=== PATIENT | female | born 1975 | race Caucasian/White ===

== ENCOUNTER 2020-09-10 16:18 | Inpatient (IN) | payer OTHER, SELFPAY ==
[2020-09-10] VITALS (7 sets, daily range): BP systolic 109–123; BP diastolic 71–80; PULSE 114–135; RESP 16–20; TEMP 36.8–39.3; O2SAT 80–99; BMI 29.0
--- NOTE | ~2020-09-10 | XR_ITS ---
EXAMINATION: XR CHEST CLINICAL INFORMATION: Shortness of breath COMPARISON: None TECHNIQUE: Frontal view of the chest was obtained. FINDINGS: There is slight ectasia of the aortic arch. The heart size is within normal limits. There is no hilar mass. Lung volumes are maintained. There are scattered patchy opacities in the mid and lower lung zones. There is no pneumothorax or pleural fluid. No evidence of pneumoperitoneum. XR/XR chest 1V IMPRESSION: Suspect multiple bilateral scattered lung opacities. This could reflect pneumonia.
--- NOTE | ~2020-09-10 | CT_ITS ---
EXAMINATION: CT ANGIOGRAM OF THE CHEST WITH AND WITHOUT CONTRAST (CT PULMONARY ANGIOGRAM FOR PE) CLINICAL INFORMATION: Reason for Exam covid with hypoxia COMPARISON: Chest radiograph earlier today TECHNIQUE: Prior to contrast administration, noncontrast localization images were obtained. Subsequently, multidetector volumetric imaging was performed from the thoracic inlet to below the diaphragms following the administration of 65 mL Omnipaque 350 intravenous contrast. No contrast reaction reported Sagittal, coronal, and MIP oblique sagittal reformatted images were obtained on the CT workstation, uploaded to PACS, and reviewed. This CT examination was performed using dose optimization techniques as appropriate, variously including the following: *Automated exposure control *Adjustment of mA and/or kV according to patient size (this includes techniques or standardized protocols for targeted exams where dose is matched to indication/reason for exam; i.e. extremities or head) *Use of iterative reconstruction technique Total exam dose-length product 261 mGy-cm FINDINGS: QUALITY OF STUDY/CONTRAST BOLUS: Satisfactory. PULMONARY ARTERIES: No central or large segmental pulmonary emboli. THORACIC AORTA: No aneurysm or dissection. LUNG: Multifocal predominantly peripheral groundglass infiltrates are present characteristic of Covid 19. PLEURA: No pleural effusion or pneumothorax. MEDIASTINUM: Normal heart size. No pericardial effusion. Small reactive lymph nodes are present but there is no hilar or mediastinal lymphadenopathy. No evidence of septal bowing or right heart strain. CHEST WALL/AXILLA: Some small axillary lymph nodes are present but there is no axillary or internal mammary lymphadenopathy. OSSEOUS STRUCTURES: No acute or suspicious osseous abnormality. UPPER ABDOMEN: Small hiatal hernia is present. No reflux of contrast into the hepatic veins to suggest elevated right heart pressures. CT/CT angio chest PE protocol IMPRESSION: 1. No convincing evidence of pulmonary emboli 2. Multifocal groundglass infiltrates present characteristic of Covid 19 VTE: negative
--- NOTE | 2020-09-10 16:43 | ECG_ITS ---
Test Reason : WEAKNESS Blood Pressure : / mmHG Vent. Rate : 129 BPM Atrial Rate : 129 BPM P-R Int : 120 ms QRS Dur : 074 ms QT Int : 312 ms P-R-T Axes : 056 070 -12 degrees QTc Int : 457 ms Sinus tachycardia Nonspecific ST abnormality Borderline ECG When compared with ECG of 28-OCT-2016 19:58, No significant change was found Referred By: Generic ED Physician Electronically Signed By:TAMIKA MENG
[2020-09-10 18:09] LABS: MANUAL DIFF FLAG NO
[2020-09-10 18:11] LABS: Hematocrit 38.6 % (37-47); Hemoglobin 12.7 g/dl (12.0-16.0); Imm Gran Abs Auto 0.02 X10*3/uL (0.00-0.03); Imm Gran Pct Auto 0.4 % (0.0-0.4); Lymphocytes Percent Auto 20.3 % (20-40); Mean Corpuscular HGB Conc 32.9 g/dl (31.0-35.0); Mean Corpuscular Hemoglobin 28.7 pg (27.0-33.0); Mean Corpuscular Volume 87.3 fL (80-98); Mean Platelet Volume 10.8 fL (9.4-12.3); Monocytes Absolute Auto 0.3 X10*3/uL (0.1-1.2); Monocytes Percent Auto 5.5 % (2-11); Neutrophils Absolute Auto 3.5 X10*3/uL (2.0-8.3); Neutrophils Percent Auto 73.8 % (45-73); Platelet Count 189 X10*3/uL (160-400); Red Blood Count 4.42 X10*6/uL (4.20-5.50); Red Cell Distribution Width 11.9 % (11.0-16.0); White Blood Count 4.7 X10*3/uL (4.8-10.8)
[2020-09-10 18:40] LABS: Anion Gap 14 (12-20); Blood Urea Nitrogen 5 mg/dL (9-16); Calcium 7.9 mg/dL (8.4-10.2); Carbon Dioxide 32 mmol/L (22-29); Chloride 92 mmol/L (96-108); Creatinine Clr Calc Pharmacy 94.3; Estimated Glomerular Filt Rate > 60; Glucose Random 134 mg/dL (60-115); Potassium 2.9 mmol/L (3.3-5.1); Sodium 135 mmol/L (135-145)
--- NOTE | 2020-09-10 19:19 | ED.URI ---
HPI - URI/Sore Throat General Chief Complaint: Upper Respiratory Symptoms Stated Complaint: cough Time Seen by Provider: 09/10/20 19:19 Source: patient Mode of arrival: ambulatory Limitations: no limitations History of Present Illness HPI Narrative: Past medical history been congested coughing body aches headache for last 4 days had subjective low-grade fever and chills and shortness of breath had COVID vaccine yesterday and now she is feeling more sick patient was saturating 92% at room air with tachycardia of 135 with frequent coughing. No other family member is sick patient never had COVID infection Related Data Home Medications Medication Instructions Recorded Confirmed No Known Home Meds 09/11/20 09/11/20 Allergies Allergy/AdvReac Type Severity Reaction Status Date / Time No Known Allergies Allergy Unverified 01/04/20 17:47 Review of Systems Review of Systems: Constitutional : No Weight loss, +Fever, No Chills ENT/Mouth : No sore throat, No Rhinorrhea Eyes: No Eye Pain, No Swelling Cardiovascular : No Chest Pain, no palpitations Respiratory : + Cough, No Sputum, no shortness of breath Gastrointestinal : no Nausea, No Vomiting, No Diarrhea, No abdominal Pain, no black stools Genitourinary : No Dysuria, No Urinary Frequency Musculoskeletal : No joint pain, No Myalgias, No Joint Swelling Skin : No Skin Lesions, No rash Neuro : + Weakness, No Numbness, No Dizziness,+ Headache Psych : No Anxiety/Panic, No Depression Heme/Lymph: No Bruising, No Lymphadenopathy Endocrine : No Polyuria, No Polydipsia All other systems reviewed and are negative [facility] Social History Social History Household Members: Family Housing: Apartment Alcohol intake: never Smoked in Last 30 Days: No Use of substances other than those prescribed or required for medical reasons: No Currently Displaying Signs/Symptoms of Drug Intoxication Withdrawal: No Have you been hit, kicked, punched, or otherwise hurt by someone within the past year? If so, by whom?: No Do you feel safe in your current relationship?: No Current Relationship Is there a partner from a previous relationship who is making you feel unsafe now?: No Are you made to feel afraid or neglected: No Advance Directives: No Advance Directives Information Provided: Yes Do you have thoughts of harming others: None Do you have a plan to hurt others: No Plan Recently lost weight without trying: No How much weight loss: Not applicable Eating poorly because of decreased appetite: No Nutrition screen score: 0 Patient : No service: No Current occupational status: unemployed Physical Exam Vital Signs: Vital Signs: Last Vital Signs Temp 98.0 F 09/11/20 15:27 Pulse 94 09/11/20 15:27 Resp 18 09/11/20 15:27 BP 100/70 09/11/20 15:27 Pulse Ox 95 09/11/20 15:27 Body Mass Index 29.0 Appearance: Alert. Oriented X3. No acute distress. Frequent cough Eyes: PERRLA, No Nystagmus ENT: Pharynx normal. Oral Mucosa moist Neck: Normal inspection. Neck supple. CVS: Normal heart rate and rhythm. Pulses normal. Respiratory: Moderate respiratory distress with frequent cough prolonged expiration. Equal air entry bilateral, no rales occasional rhonchi and wheezing Abdomen: Soft and nontender. Bowel sounds are present, no mass palpable, no CVA tenderness Skin: Skin warm and dry. Normal skin color. Normal skin turgor. Extremities: No lower extremity edema. No calf tenderness Neuro: Oriented X 3. No motor deficit. No sensory deficit.No cerebellar signs , cranial nerves II-XII intact MDM - URI/Sore Throat MDM Narrative Medical decision making narrative: Patient positive for COVID-19 infection desaturated to 88% at room air in the ER improved on 2 L to 95% frequent cough chest x-ray showed bilateral infiltrate CTA chest showed no PE multiple ground-glass infiltrate. Patient started on Decadron p.o. doxycycline will admit patient for hypoxia with COVID infection Differential Diagnosis Differential diagnosis: Likely upper respiratory infection Medical Records Attestation: I reviewed the patient's medical records. Lab Data Attestation: I reviewed the patient's lab results. Result diagrams: 09/11/20 05:56 09/11/20 05:56 Labs: Lab Results 09/10/20 09/10/20 09/10/20 Range/Units 18:05 18:05 19:38 WBC 4.7 L (4.8-10.8) X10*3/uL RBC 4.42 (4.20-5.50) X10*6/uL Hgb 12.7 (12.0-16.0) g/dl Hct 38.6 (37-47) % MCV 87.3 (80-98) fL MCH 28.7 (27.0-33.0) pg MCHC 32.9 (31.0-35.0) g/dl RDW 11.9 (11.0-16.0) % Plt Count 189 (160-400) X10*3/uL MPV 10.8 (9.4-12.3) fL Immature Gran % (Auto) 0.4 (0.0-0.4) % Neut % (Auto) 73.8 H (45-73) % Lymph % (Auto) 20.3 (20-40) % [place] % (Auto) 5.5 (2-11) % Eos % (Auto) 0.0 (0-4) % Baso % (Auto) 0.0 (0-2) % Lymph # (Auto) 1.0 L (1.2-4.9) X10*3/uL [place] # (Auto) 0.3 (0.1-1.2) X10*3/uL Eos # (Auto) 0.0 (0.0-0.4) X10*3/uL Baso # (Auto) 0.0 (0.0-0.2) X10*3/uL Abs Immat Gran (auto) 0.02 (0.00-0.03) X10*3/uL Absolute Neuts (auto) 3.5 (2.0-8.3) X10*3/uL Absolute Nucleated RBC 0.000 (0.0-0.012) X10*3/uL Nucleated RBC % (auto) 0.0 (0.0-0.2) /100WBC PT (10.8-13.0) SEC INR (0.9-1.1) APTT (24.1-38.0) SEC D-Dimer NG/ML Sodium 135 (135-145) mmol/L Potassium 2.9 L (3.3-5.1) mmol/L Chloride 92 L (96-108) mmol/L Carbon Dioxide 32 H (22-29) mmol/L Anion Gap 14 (12-20) BUN 5 L (9-16) mg/dL Creatinine 0.72 (0.5-1.4) mg/dL Estim Creat Clear Calc 94.3 Estimated GFR > 60 Random Glucose 134 H (60-115) mg/dL Calcium 7.9 L (8.4-10.2) mg/dL Magnesium 2.0 (1.6-2.6) mg/dL Lactate Dehydrogenase 296 H (122-220) U/L C-Reactive Protein 8.31 H (< or = 0.50) mg/dL COVID-19 (MARIAM) Positive A (Negative) COVID-19 Clin Com See Note 09/10/20 Range/Units 22:24 WBC (4.8-10.8) X10*3/uL RBC (4.20-5.50) X10*6/uL Hgb (12.0-16.0) g/dl Hct (37-47) % MCV (80-98) fL MCH (27.0-33.0) pg MCHC (31.0-35.0) g/dl RDW (11.0-16.0) % Plt Count (160-400) X10*3/uL MPV (9.4-12.3) fL Immature Gran % (Auto) (0.0-0.4) % Neut % (Auto) (45-73) % Lymph % (Auto) (20-40) % [place] % (Auto) (2-11) % Eos % (Auto) (0-4) % Baso % (Auto) (0-2) % Lymph # (Auto) (1.2-4.9) X10*3/uL [place] # (Auto) (0.1-1.2) X10*3/uL Eos # (Auto) (0.0-0.4) X10*3/uL Baso # (Auto) (0.0-0.2) X10*3/uL Abs Immat Gran (auto) (0.00-0.03) X10*3/uL Absolute Neuts (auto) (2.0-8.3) X10*3/uL Absolute Nucleated RBC (0.0-0.012) X10*3/uL Nucleated RBC % (auto) (0.0-0.2) /100WBC PT 14.0 H (10.8-13.0) SEC INR 1.2 H (0.9-1.1) APTT 30.7 (24.1-38.0) SEC D-Dimer 364 NG/ML Sodium (135-145) mmol/L Potassium (3.3-5.1) mmol/L Chloride (96-108) mmol/L Carbon Dioxide (22-29) mmol/L Anion Gap (12-20) BUN (9-16) mg/dL Creatinine (0.5-1.4) mg/dL Estim Creat Clear Calc Estimated GFR Random Glucose (60-115) mg/dL Calcium (8.4-10.2) mg/dL Magnesium (1.6-2.6) mg/dL Lactate Dehydrogenase (122-220) U/L C-Reactive Protein (< or = 0.50) mg/dL COVID-19 (MARIAM) (Negative) COVID-19 Clin Com Imaging Data CT scan - chest: Attestation: I personally reviewed and interpreted this imaging study as follows: Radiologist's impression: CT/CT angio chest PE protocol IMPRESSION: 1. No convincing evidence of pulmonary emboli 2. Multifocal groundglass infiltrates present characteristic of Covid 19 VTE: negative Discharge Plan Discharge Clinical Impression: COVID-19, Hypoxia Patient Disposition: Admitted As Inpatient Interventions: Admission Worksheet (ED) Last Done: 09/11/20 02:16 Discharge Date/Time: 09/11/20 02:17
[2020-09-10 19:56] LABS: COVID-19 Test Positive (Negative); IDNOW Serial# 9DD0AD1C
[2020-09-10] MEDS: Potassium Chloride Packet 20 MEQ PACKET 40 MEQ PO (19:57)
[2020-09-10] MEDS: dexAMETHasone 2 MG TABLET 10 MG PO (20:01)
[2020-09-10] MEDS: Albuterol Sulfate 90 MCG 8 GM INHALER 4 PUFF INHALE (20:02)
[2020-09-10] MEDS: Acetaminophen 325 MG TABLET 650 MG PO (20:45)
[2020-09-10] MEDS: guaiFEN/Codeine SF 200/20/10ML 10 ML LIQUID PO (20:45)
[2020-09-10 22:17] LABS: C Reactive Protein 8.31 mg/dL (< or = 0.50); Lactate Dehydrogenase 296 U/L (122-220)
[2020-09-10 22:43] LABS: INTERNATIONAL NORM RATIO 1.2 (0.9-1.1)
[2020-09-10 22:46] LABS: D Dimer 364 NG/ML; Partial Thromboplastin Time 30.7 SEC (24.1-38.0)
--- NOTE | 2020-09-10 23:13 | PM.IMHP ---
History of Present Illness Date of Service: 09/11/20 Chief Complaint: Cough 44-year-old female withNo significant past medical history presented to the hospital with a chief complaint of cough, fatigue, generalized body aches for the past 4 days. Denies any chest pain palpitations lightheadedness or dizziness. Reports subjective fevers and chills. Mention that she had shortness of breath but improving. Denies any loss of sense of smell or taste. Denies any nausea vomiting diarrhea. Review of all other systems is negative except mentioned above ER course: Per ER team patient noted to be hypoxic on presentation subsequently placed on supplemental oxygen. Patient was not in respiratory distress. Chest x-ray showed multifocal infiltrates. Given Decadron. Admitted to the hospital for further management. Patient was noted to be COVID-19 positive. [facility] Social History Household Members: Family Housing: Apartment Alcohol intake: never Smoking Status: Never smoker Smoked in Last 30 Days: No Use of substances other than those prescribed or required for medical reasons: No Have you been hit, kicked, punched, or otherwise hurt by someone within the past year? If so, by whom?: No Do you feel safe in your current relationship?: No Current Relationship Is there a partner from a previous relationship who is making you feel unsafe now?: No Are you made to feel afraid or neglected: No Advance Directives: No Advance Directives Information Provided: Yes Recently lost weight without trying: No How much weight loss: Not applicable Eating poorly because of decreased appetite: No Nutrition screen score: 0 Patient : No Meds Allergies Allergy/AdvReac Type Severity Reaction Status Date / Time No Known Allergies Allergy Unverified 01/04/20 17:47 Active Medications: Current Medications Generic Name Dose Route Start Last Admin Trade Name Freq PRN Reason Stop Dose Admin Acetaminophen 650 mg 09/10/20 23:10 Acetaminophen 325 Mg Tablet PO Q6H PRN Pain, Mild (Pain Scale 1-3) Albuterol Sulfate 4 puff 09/10/20 23:08 Albuterol Sulfate 90 Mcg 8 Gm Inhaler INHALE Q2H PRN Shortness of Breath/Wheezing Azithromycin 500 mg 09/10/20 23:15 Azithromycin 500 Mg Tablet PO Q24H MARCELINO Dexamethasone 6 mg 09/11/20 09:00 Dexamethasone 6 Mg Tablet PO DAILY [facility] Enoxaparin Sodium 40 mg 09/10/20 23:15 Enoxaparin Sodium 40 Mg/0.4 Ml Syringe SUBCUT Q24H MARCELINO Potassium Chloride 10 meq in 100 mls @ 100 mls/hr 09/10/20 23:00 IV 09/10/20 23:59 ONCE ONE Ceftriaxone Sodium 1 gm/ 50 mls @ 100 mls/hr 09/10/20 23:15 Sodium Chloride IV Q24H MARCELINO Senna 17.2 mg 09/10/20 23:10 Sennosides 8.6 Mg Tablet PO BEDTIME PRN Constipation Sodium Chloride 3 ml 09/11/20 00:00 0.9 % Sodium Chloride Flush 3 Ml Syringe IVFLUSH QSHIFT MARCELINO Physical Exam Vital Signs and Narrative: Vital Signs: Last Vital Signs Temp 98.3 F 09/10/20 22:04 Pulse 114 H 09/10/20 22:34 Resp 20 09/10/20 22:34 BP 109/80 09/10/20 22:34 Pulse Ox 80 L 09/10/20 22:52 Body Mass Index 29.0 Gen: Appears be in no acute distress HEENT: NCAT, Moist mucosa. Pulmonary: Course breath sounds, fair air entry CVS: Normal S1-S2 Abdomen: BS+, Soft, Nontender Extremities: Warm well perfused Neuro: Alert and awake. Results Labs CBC and Chem 7: 09/10/20 18:05 09/10/20 18:05 Labs: Laboratory Results - last 24 hr 09/10/20 09/10/20 09/10/20 18:05 18:05 19:38 MCV 87.3 MCH 28.7 MCHC 32.9 RDW 11.9 Plt Count 189 MPV 10.8 Immature Gran % (Auto) 0.4 Neut % (Auto) 73.8 H Lymph % (Auto) 20.3 [place] % (Auto) 5.5 Eos % (Auto) 0.0 Baso % (Auto) 0.0 Lymph # (Auto) 1.0 L [place] # (Auto) 0.3 Eos # (Auto) 0.0 Baso # (Auto) 0.0 Abs Immat Gran (auto) 0.02 Absolute Neuts (auto) 3.5 Absolute Nucleated RBC 0.000 Nucleated RBC % (auto) 0.0 PT INR APTT D-Dimer Anion Gap 14 Estim Creat Clear Calc 94.3 Estimated GFR > 60 Random Glucose 134 H Calcium 7.9 L Magnesium 2.0 Lactate Dehydrogenase 296 H C-Reactive Protein 8.31 H COVID-19 (MARIAM) Positive A COVID-19 Clin Com See Note 09/10/20 22:24 MCV MCH MCHC RDW Plt Count MPV Immature Gran % (Auto) Neut % (Auto) Lymph % (Auto) [place] % (Auto) Eos % (Auto) Baso % (Auto) Lymph # (Auto) [place] # (Auto) Eos # (Auto) Baso # (Auto) Abs Immat Gran (auto) Absolute Neuts (auto) Absolute Nucleated RBC Nucleated RBC % (auto) PT 14.0 H INR 1.2 H APTT 30.7 D-Dimer 364 Anion Gap Estim Creat Clear Calc Estimated GFR Random Glucose Calcium Magnesium Lactate Dehydrogenase C-Reactive Protein COVID-19 (MARIAM) COVID-19 Clin Com Imaging Radiologist's Impressions: Impressions Chest X-Ray 09/10/20 16:43 IMPRESSION: Suspect multiple bilateral scattered lung opacities. This could reflect pneumonia. Assessment and Plan (1) COVID-19: Status: Acute 44-year-old female with No significant past medical history Presented to the hospital with a chief complaint of cough and shortness of breath noted to have COVID-19 pneumonia. Admitted for further management. Acute hypoxic respiratory failure: Likely in the setting of COVID-19 pneumonia. Patient currently not in distress. Saturations improving on supplemental oxygen. Albuterol inhaler p.r.n. COVID-19 pneumonia: Continue the patient on Decadron 6 mg daily. Ceftriaxone and azithromycin added. Id consult for further recommendations. DVT prophylaxis: Lovenox Code status: Full code
[2020-09-10 23:31] LABS: D Dimer 384 NG/ML
[2020-09-11] VITALS (9 sets, daily range): BP systolic 100–116; BP diastolic 59–80; PULSE 91–111; RESP 18–25; TEMP 36.2–37.6; O2SAT 93–100
[2020-09-11] MEDS: iohexoL 350 MG/ML 100 ML INFUS..BTL 65 ML IV (00:10)
[2020-09-11] MEDS: Azithromycin 500 MG TABLET PO ×2 (00:18→21:25)
[2020-09-11] MEDS: cefTRIAXone sodium 1 GM in 0.9 % Sodium Chloride 50 ML IV ×2 (00:18→21:25)
[2020-09-11] MEDS: Potassium Chloride/H20 10 MEQ/100 ML PIGGYBACK 100 MEQ IV (00:19)
[2020-09-11] MEDS: Enoxaparin Sodium 40 MG/0.4 ML SYRINGE SUBCUT ×2 (00:19→21:25)
[2020-09-11 07:05] LABS: Hemoglobin 12.7 g/dl (12.0-16.0); Imm Gran Abs Auto 0.01 X10*3/uL (0.00-0.03); Imm Gran Pct Auto 0.4 % (0.0-0.4); Lymphocytes Absolute Auto 0.5 X10*3/uL (1.2-4.9); Lymphocytes Percent Auto 18.8 % (20-40); MANUAL DIFF FLAG SCAN; Mean Corpuscular HGB Conc 32.6 g/dl (31.0-35.0); Mean Corpuscular Hemoglobin 28.6 pg (27.0-33.0); Mean Corpuscular Volume 87.8 fL (80-98); Mean Platelet Volume 11.1 fL (9.4-12.3); Monocytes Absolute Auto 0.1 X10*3/uL (0.1-1.2); Monocytes Percent Auto 2.8 % (2-11); Neutrophils Absolute Auto 2.2 X10*3/uL (2.0-8.3); Platelet Count 193 X10*3/uL (160-400); Red Blood Count 4.44 X10*6/uL (4.20-5.50); Red Cell Distribution Width 11.9 % (11.0-16.0); SCAN SMEAR FLAG 1; White Blood Count 2.8 X10*3/uL (4.8-10.8)
[2020-09-11 07:37] LABS: SLIDE REVIEW VERIFIED
[2020-09-11 07:38] LABS: Blood Urea Nitrogen 7 mg/dL (9-16); Calcium 7.8 mg/dL (8.4-10.2); Estimated Glomerular Filt Rate > 60; Glucose Random 183 mg/dL (60-115)
[2020-09-11 08:01] LABS: Anion Gap 17 (12-20); Carbon Dioxide 27 mmol/L (22-29); Chloride 98 mmol/L (96-108); Potassium 3.6 mmol/L (3.3-5.1); Sodium 138 mmol/L (135-145)
[2020-09-11 08:28] LABS: Alanine Aminotransferase 28 U/L (0-31); Albumin Level 3.7 g/dL (3.5-5.0); Alkaline Phosphatase 73 U/L (39-117); Aspartate Amino Transferase 47 U/L (5-31); Bilirubin Direct 0.2 mg/dL (0.0-0.5); Bilirubin Total 0.4 mg/dL (0.0-1.0); Total Protein 6.9 g/dL (6.5-8.0)
--- NOTE | 2020-09-11 09:07 | MHC.CM.PN ---
Patient is Covid (+) and not reachable by phone (neither cell at [phone] nor room [id number]).CM spoke with Daughter/Dina at [phone]. Patient is from [place] and is here living with her Daughter and 2 Grandchildren, ages 5 & 8 years of age, at [address] in [place] (not [address] as [address]). Home is the goal for dc and CM has initiated and will follow for dc planning. Patient does not have a PCP in this area.
[2020-09-11] MEDS: dexAMETHasone 6 MG TABLET PO (09:17)
[2020-09-11] MEDS: 0.9 % Sodium Chloride Flush 3 ML SYRINGE IVFLUSH ×3 (09:18→21:25)
[2020-09-11 09:20] LABS: Procalcitonin 0.07 ng/mL
--- NOTE | 2020-09-11 13:46 | HO.PM.IMPN ---
Subjective Subjective Date of Service: 09/12/20 Interval History: covid pna Review of Systems sob seems improving Denies any chest pain or abdominal pain of fever or chills or nausea or vomiting. Physical Exam Vital Signs: Vital Signs: Last Vital Signs Temp 97.7 F 09/11/20 12:00 Pulse 99 09/11/20 12:00 Resp 22 H 09/11/20 12:00 BP 112/64 09/11/20 12:00 Pulse Ox 94 09/11/20 12:00 Body Mass Index 29.0 Physical exam: Cvs: rrr, [id number] , no murmur res: Fair entry, slightly diminished at bases. abd: no rebound or guarding ,nt, bs present. ext pulses present , no cyanosis neuro: axo3 , nonfocal. Objective Data Current Medications Generic Name Dose Route Start Last Admin Trade Name Freq PRN Reason Stop Dose Admin Acetaminophen 650 mg 09/10/20 23:10 Acetaminophen 325 Mg Tablet PO Q6H PRN Pain, Mild (Pain Scale 1-3) Albuterol Sulfate 4 puff 09/10/20 23:08 Albuterol Sulfate 90 Mcg 8 Gm Inhaler INHALE Q2H PRN Shortness of Breath/Wheezing Azithromycin 500 mg 09/10/20 23:15 09/11/20 00:18 Azithromycin 500 Mg Tablet PO 500 mg BEDTIME MARCELINO Administration Dexamethasone 6 mg 09/11/20 09:00 09/11/20 09:17 Dexamethasone 6 Mg Tablet PO 6 mg DAILY MARCELINO Administration Enoxaparin Sodium 40 mg 09/11/20 00:00 09/11/20 00:19 Enoxaparin Sodium 40 Mg/0.4 Ml Syringe SUBCUT 40 mg Q24H MARCELINO Administration Ceftriaxone Sodium 1 gm/ 50 mls @ 100 mls/hr 09/11/20 00:00 09/11/20 00:54 Sodium Chloride IV Infused Q24H MARCELINO Infusion Senna 17.2 mg 09/10/20 23:10 Sennosides 8.6 Mg Tablet PO BEDTIME PRN Constipation Sodium Chloride 3 ml 09/11/20 00:00 09/11/20 09:18 0.9 % Sodium Chloride Flush 3 Ml Syringe IVFLUSH 3 ml QSHIFT MARCELINO Administration Labs CBC & Chem 7: 09/11/20 05:56 09/11/20 05:56 Assessment and Plan (1) COVID-19: Status: Acute Assessment and Plan: 44-year-old female with No significant past medical history Presented to the hospital with a chief complaint of cough and shortness of breath noted to have COVID-19 pneumonia. Admitted for further management. 1. COVID-19 pneumonia. Patient currently not in distress. Saturations improving on supplemental oxygen. Albuterol inhaler p.r.n. Continue the patient on Decadron 6 mg daily. Ceftriaxone and azithromycin added. Id consult for further recommendations. 2.hyperglycemia : will check Hba1c levels , moniter fs DVT prophylaxis: Lovenox
[2020-09-11 14:26] LABS: Estimated Average Glucose 111 mg/dL; Hemoglobin A1c % 5.5 %
[2020-09-11 15:45] LABS: Glucose, Whole Blood 144 mg/dL (60-115)
[2020-09-11 20:20] LABS: Glucose, Whole Blood 195 mg/dL (60-115)
[2020-09-12 03:38] VITALS: BP 107/67; PULSE 94; RESP 18; TEMP 36.2; O2SAT 95
[2020-09-12 07:44] VITALS: BP 100/56; PULSE 99; RESP 20; TEMP 36.7; O2SAT 90
[2020-09-12 07:44] LABS: Glucose, Whole Blood 96 mg/dL (60-115)
[2020-09-12] MEDS: dexAMETHasone 6 MG TABLET PO (07:44)
[2020-09-12] MEDS: 0.9 % Sodium Chloride Flush 3 ML SYRINGE IVFLUSH ×2 (07:44→15:14)
[2020-09-12] MEDS: guaiFENesin 100 MG/5 ML LIQUID 10 ML PO (11:21)
[2020-09-12 11:35] LABS: Glucose, Whole Blood 139 mg/dL (60-115)
[2020-09-12 11:39] VITALS: BP 112/62; PULSE 98; RESP 22; TEMP 36.3; O2SAT 90
--- NOTE | 2020-09-12 12:02 | W.PM.IDCN ---
History of Present Illness Data of Consult Service Date: 09/11/20 Requesting physician: Brenda Jesus Primary Care Provider: None Physician HPI Reason for consult: shortness of breath She presents with cough and shortness of breath for four days She has COVID positive She has no hypoxia today Review of Systems Review of Systems: Yes all other systems are reviewed and are negative [facility] Family History Family history: reviewed and not pertinent Social History Social History Household Members: Family Housing: Apartment Alcohol intake: never Smoked in Last 30 Days: No Use of substances other than those prescribed or required for medical reasons: No Currently Displaying Signs/Symptoms of Drug Intoxication Withdrawal: No Have you been hit, kicked, punched, or otherwise hurt by someone within the past year? If so, by whom?: No Do you feel safe in your current relationship?: No Current Relationship Is there a partner from a previous relationship who is making you feel unsafe now?: No Are you made to feel afraid or neglected: No Advance Directives: No Advance Directives Information Provided: Yes Do you have thoughts of harming others: None Do you have a plan to hurt others: No Plan Recently lost weight without trying: No How much weight loss: Not applicable Eating poorly because of decreased appetite: No Nutrition screen score: 0 Patient : No service: No Current occupational status: unemployed Meds Allergies Allergy/AdvReac Type Severity Reaction Status Date / Time No Known Allergies Allergy Unverified 01/04/20 17:47 Active Medications: Current Medications Generic Name Dose Route Start Last Admin Trade Name Freq PRN Reason Stop Dose Admin Acetaminophen 650 mg 09/10/20 23:10 Acetaminophen 325 Mg Tablet PO Q6H PRN Pain, Mild (Pain Scale 1-3) Albuterol Sulfate 4 puff 09/10/20 23:08 Albuterol Sulfate 90 Mcg 8 Gm Inhaler INHALE Q2H PRN Shortness of Breath/Wheezing Azithromycin 500 mg 09/10/20 23:15 09/11/20 21:25 Azithromycin 500 Mg Tablet PO 500 mg BEDTIME MARCELINO Administration Dexamethasone 6 mg 09/11/20 09:00 09/12/20 07:44 Dexamethasone 6 Mg Tablet PO 6 mg DAILY MARCELINO Administration Enoxaparin Sodium 40 mg 09/11/20 00:00 09/11/20 21:25 Enoxaparin Sodium 40 Mg/0.4 Ml Syringe SUBCUT 40 mg Q24H MARCELINO Administration Guaifenesin 10 ml 09/12/20 10:36 09/12/20 11:21 Guaifenesin 100 Mg/5 Ml Liquid PO 10 ml Q6H PRN Administration Cough Ceftriaxone Sodium 1 gm/ 50 mls @ 100 mls/hr 09/11/20 00:00 09/11/20 22:20 Sodium Chloride IV Infused Q24H MARCELINO Infusion Senna 17.2 mg 09/10/20 23:10 Sennosides 8.6 Mg Tablet PO BEDTIME PRN Constipation Sodium Chloride 3 ml 09/11/20 00:00 09/12/20 07:44 0.9 % Sodium Chloride Flush 3 Ml Syringe IVFLUSH 3 ml QSHIFT MARCELINO Administration Home Medications Medication Instructions Recorded Confirmed Last Taken Type No Known Home Meds 09/11/20 09/11/20 Unknown History Physical Exam Vital Signs: Vital Signs: Last Vital Signs Temp 97.4 F 09/12/20 11:39 Pulse 98 09/12/20 11:39 Resp 22 H 09/12/20 11:39 BP 112/62 09/12/20 11:39 Pulse Ox 90 L 09/12/20 11:39 Body Mass Index 29.0 Const: General: cooperative HENMT: Head: Yes normal to inspection Mouth: Normal oral and palatal mucosa present Resp: Effort & Inspection: normal respiratory effort and able to speak in complete sentences Cardio: Rate: regular rate Rhythm: regular rhythm GI: Palpation (GI): nontender Results Labs CBC & Chem 7: 09/11/20 05:56 09/11/20 05:56 Microbiology Microbiology Results: Microbiology 09/10/20 23:53 Blood - Venous Blood Culture - Preliminary No growth after 24 hours. 09/10/20 23:53 Blood - Venous Blood Culture - Preliminary No growth after 24 hours. Assessment and Plan (1) COVID-19: Status: Acute COVID and now hypoxia No signs bacterial pneumonia Stop antibiotics Consider Remdesivir Would stop antibiotics Continue steroids
--- NOTE | 2020-09-12 14:14 | P.PNIM_ITS ---
Subjective Subjective Date of Service: 09/12/20 Interval History: sob Review of Systems Patient stills somewhat short of breath but saturation is also hovering around 90s, has some cough. Physical Exam Vital Signs: Vital Signs: Last Vital Signs Temp 97.4 F 09/12/20 11:39 Pulse 98 09/12/20 11:39 Resp 22 H 09/12/20 11:39 BP 112/62 09/12/20 11:39 Pulse Ox 90 L 09/12/20 11:39 Body Mass Index 29.0 Cvs: rrr, [id number] , no murmur res: Fair entry, slightly diminished at bases. abd: no rebound or guarding ,nt, bs present. ext pulses present , no cyanosis neuro: axo3 , nonfocal. Objective Data Current Medications Generic Name Dose Route Start Last Admin Trade Name Freq PRN Reason Stop Dose Admin Acetaminophen 650 mg 09/10/20 23:10 Acetaminophen 325 Mg Tablet PO Q6H PRN Pain, Mild (Pain Scale 1-3) Albuterol Sulfate 4 puff 09/10/20 23:08 Albuterol Sulfate 90 Mcg 8 Gm Inhaler INHALE Q2H PRN Shortness of Breath/Wheezing Dexamethasone 6 mg 09/11/20 09:00 09/12/20 07:44 Dexamethasone 6 Mg Tablet PO 6 mg DAILY MARCELINO Administration Enoxaparin Sodium 40 mg 09/11/20 00:00 09/11/20 21:25 Enoxaparin Sodium 40 Mg/0.4 Ml Syringe SUBCUT 40 mg Q24H MARCELINO Administration Guaifenesin 10 ml 09/12/20 10:36 09/12/20 11:21 Guaifenesin 100 Mg/5 Ml Liquid PO 10 ml Q6H PRN Administration Cough Senna 17.2 mg 09/10/20 23:10 Sennosides 8.6 Mg Tablet PO BEDTIME PRN Constipation Sodium Chloride 3 ml 09/11/20 00:00 09/12/20 07:44 0.9 % Sodium Chloride Flush 3 Ml Syringe IVFLUSH 3 ml QSHIFT MARCELINO Administration Labs CBC & Chem 7: 09/11/20 05:56 09/11/20 05:56 Microbiology Microbiology Results: Microbiology 09/10/20 23:53 Blood - Venous Blood Culture - Preliminary No growth after 24 hours. 09/10/20 23:53 Blood - Venous Blood Culture - Preliminary No growth after 24 hours. Assessment and Plan (1) Hypoxia: Status: Acute (2) COVID-19: Status: Acute Assessment and Plan: 44-year-old female with No significant past medical history Presented to the [facility] with a chief complaint of cough and shortness of breath noted to have COVID-19 pneumonia. Admitted for further management. 1. COVID-19 pneumonia. Patient currently not in distress. Procalcitonin level is 0.07, blood culture negative at 24 hours Saturations improving on supplemental oxygen. Albuterol inhaler p.r.n. Continue the patient on Decadron 6 mg daily. Id evaluation-off Ceftriaxone and azithromycin added. He her sats are still like in 90s range will continue to monitor her today if stays stable then tomorrow will get home oxygen evaluation 2.hyperglycemia : Hba1c levels 5.5 , moniter fs DVT prophylaxis: Lovenox
[2020-09-12 15:30] VITALS: BP 104/60; PULSE 93; RESP 18; TEMP 36.8; O2SAT 94
[2020-09-12 16:05] LABS: Glucose, Whole Blood 130 mg/dL (60-115)
--- NOTE | 2020-09-12 18:40 | PC.NURSE ---
Pt had no complaints throughout day. Tolerating room air well. Md aware, pt given cough syrup per emar.
[2020-09-12 19:47] VITALS: BP 116/68; PULSE 100; RESP 16; TEMP 37.2; O2SAT 92
[2020-09-12 20:14] LABS: Glucose, Whole Blood 123 mg/dL (60-115)
[2020-09-13] VITALS (7 sets, daily range): BP systolic 107–141; BP diastolic 64–81; PULSE 98–120; RESP 18–20; TEMP 35.9–38.4; O2SAT 90–96
[2020-09-13] MEDS: Enoxaparin Sodium 40 MG/0.4 ML SYRINGE SUBCUT (00:26)
[2020-09-13] MEDS: 0.9 % Sodium Chloride Flush 3 ML SYRINGE IVFLUSH ×4 (00:27→19:55)
[2020-09-13 07:23] LABS: Glucose, Whole Blood 109 mg/dL (60-115)
[2020-09-13] MEDS: dexAMETHasone 6 MG TABLET PO (08:46)
[2020-09-13] MEDS: Acetaminophen 325 MG TABLET 650 MG PO (08:46)
[2020-09-13] MEDS: guaiFENesin 100 MG/5 ML LIQUID 10 ML PO (10:01)
[2020-09-13] MEDS: Zinc Sulfate 220 MG CAPSULE PO (10:02)
[2020-09-13] MEDS: Ascorbic Acid 500 MG TABLET PO ×2 (10:02→19:55)
[2020-09-13] MEDS: Famotidine 20 MG TABLET 40 MG PO (10:02)
[2020-09-13 11:44] LABS: Glucose, Whole Blood 138 mg/dL (60-115)
--- NOTE | 2020-09-13 12:23 | PM.CNPUL ---
History of Present Illness History of Present Illness Consult date: 09/13/20 Chief complaint: Covid Pneumonia Narrative: 44-year-old female presenting cough, fatigue, generalized body aches for the past 4 days. Denies any chest pain palpitations lightheadedness or dizziness. Reports subjective fevers and chills. In ER, the patient was noted to be hypoxic on presentation subsequently placed on supplemental oxygen. Chest x-ray showed multifocal infiltrates. CT chest personally reviewed by me with extensive bilateral airspace disease consistent with severe Covid. Given Decadron and started on Remdisivir. Review of Systems Constitutional: Constitutional: Reports fever(s), Reports headache(s) and Reports malaise ENT: Denies change in voice, Reports headache(s), Denies lip swelling, Denies mouth pain, Reports nasal congestion, Reports nasal discharge and Denies tongue swelling Cardiovascular: Cardiovascular: Denies chest pain Respiratory: Respiratory: Reports cough Gastrointestinal: Gastrointestinal: Denies abdominal pain Musculoskeletal: Musculoskeletal: Denies no additional musculoskeletal complaints Neurologic: Denies Neuro-related abnormal movements and Reports headache(s) Psychiatric: Psychiatric: Denies no additional psychiatric complaints Hematologic/Lymphatic: Hematologic/Lymphatic: Denies easy bleeding and Denies lymphadenopathy Allergic/Immunologic: Allergic/Immunologic: Denies lip swelling and Denies tongue swelling PMFSH Past Medical History Medical History (Updated 09/13/20 @ 12:27 by Jose Francisco Aleman MD) Pneumonia due to 2019-nCoV Family History Family history: reviewed and not pertinent Social History Social History Household Members: Family Housing: Apartment Alcohol intake: never Smoked in Last 30 Days: No Use of substances other than those prescribed or required for medical reasons: No Currently Displaying Signs/Symptoms of Drug Intoxication Withdrawal: No Have you been hit, kicked, punched, or otherwise hurt by someone within the past year? If so, by whom?: No Do you feel safe in your current relationship?: No Current Relationship Is there a partner from a previous relationship who is making you feel unsafe now?: No Are you made to feel afraid or neglected: No Advance Directives: No Advance Directives Information Provided: Yes Do you have thoughts of harming others: None Do you have a plan to hurt others: No Plan Recently lost weight without trying: No How much weight loss: Not applicable Eating poorly because of decreased appetite: No Nutrition screen score: 0 Patient : No service: No Current occupational status: unemployed Meds Allergies Allergy/AdvReac Type Severity Reaction Status Date / Time No Known Allergies Allergy Unverified 01/04/20 17:47 Active Medications: Current Medications Generic Name Dose Route Start Last Admin Trade Name Freq PRN Reason Stop Dose Admin Acetaminophen 650 mg 09/10/20 23:10 09/13/20 08:46 Acetaminophen 325 Mg Tablet PO 650 mg Q6H PRN Administration Pain, Mild (Pain Scale 1-3) Albuterol Sulfate 4 puff 09/10/20 23:08 Albuterol Sulfate 90 Mcg 8 Gm Inhaler INHALE Q2H PRN Shortness of Breath/Wheezing Ascorbic Acid 500 mg 09/13/20 09:00 09/13/20 10:02 Ascorbic Acid 500 Mg Tablet PO 500 mg BID MARCELINO Administration Dexamethasone 6 mg 09/11/20 09:00 09/13/20 08:46 Dexamethasone 6 Mg Tablet PO 6 mg DAILY MARCELINO Administration Doxycycline Hyclate 100 mg 09/13/20 09:00 09/13/20 10:02 Doxycycline Hyclate 100 Mg Tablet PO 100 mg Q12H MARCELINO Administration Enoxaparin Sodium 40 mg 09/11/20 00:00 09/13/20 00:26 Enoxaparin Sodium 40 Mg/0.4 Ml Syringe SUBCUT 40 mg Q24H MARCELINO Administration Famotidine 40 mg 09/13/20 09:00 09/13/20 10:02 Famotidine 20 Mg Tablet PO 40 mg DAILY MARCELINO Administration Guaifenesin 10 ml 09/12/20 10:36 09/13/20 10:01 Guaifenesin 100 Mg/5 Ml Liquid PO 10 ml Q6H PRN Administration Cough Remdesivir 100 mg/ Sodium 230 mls @ 115 mls/hr 09/14/20 10:00 Chloride IV 09/17/20 11:59 Q24H MARCELINO Senna 17.2 mg 09/10/20 23:10 Sennosides 8.6 Mg Tablet PO BEDTIME PRN Constipation Sodium Chloride 3 ml 09/11/20 00:00 09/13/20 08:46 0.9 % Sodium Chloride Flush 3 Ml Syringe IVFLUSH 3 ml QSHIFT MARCELINO Administration Zinc Sulfate 220 mg 09/13/20 09:00 09/13/20 10:02 Zinc Sulfate 220 Mg Capsule PO 220 mg DAILY MARCELINO Administration Home Medications Medication Instructions Recorded Confirmed Last Taken Type No Known Home Meds 09/11/20 09/11/20 Unknown History Physical Exam Vital Signs: Vital Signs: Last Vital Signs Temp 97.2 F 09/13/20 12:00 Pulse 98 09/13/20 12:00 Resp 20 09/13/20 12:00 BP 107/67 09/13/20 12:00 Pulse Ox 91 L 09/13/20 12:00 Body Mass Index 29.0 Const: General: alert Neck: Neck: Yes normal visual inspection, Yes full ROM and Yes no lymphadenopathy Chest: Chest palpation & inspection: normal inspection of the chest Resp: Auscultation: diminished lung sounds Cardio: Rate: regular rate Rhythm: regular rhythm Heart sounds: S1 normal heart sound present and S2 normal heart sound present GI: Palpation (GI): Soft to palpation and nontender Auscultation: normal bowel sounds Skin: General skin exam: rashes and/or lesions noted Results Laboratory Findings CBC and BMP: 09/11/20 05:56 09/11/20 05:56 ABG, PT/INR, D-dimer: PT/INR, D-dimer PT 14.0 SEC (10.8-13.0) H 09/10/20 22:24 INR 1.2 (0.9-1.1) H 09/10/20 22:24 D-Dimer 384 NG/ML 09/10/20 23:15 Abnormal lab findings: Abnormal Labs 09/10/20 09/10/20 09/10/20 18:05 18:05 19:38 WBC 4.7 L Neut % (Auto) 73.8 H Lymph % (Auto) Lymph # (Auto) 1.0 L PT INR Potassium 2.9 L Chloride 92 L Carbon Dioxide 32 H BUN 5 L POC Glucose Random Glucose 134 H Calcium 7.9 L AST Lactate Dehydrogenase 296 H C-Reactive Protein 8.31 H COVID-19 (MARIAM) Positive A 09/10/20 09/11/20 09/11/20 22:24 05:56 05:56 WBC 2.8 L Neut % (Auto) 78.0 H Lymph % (Auto) 18.8 L Lymph # (Auto) 0.5 L PT 14.0 H INR 1.2 H Potassium Chloride Carbon Dioxide BUN 7 L POC Glucose Random Glucose 183 H D Calcium 7.8 L AST 47 H Lactate Dehydrogenase C-Reactive Protein COVID-19 (MARIAM) 09/11/20 09/11/20 09/12/20 15:39 20:10 10:54 WBC Neut % (Auto) Lymph % (Auto) Lymph # (Auto) PT INR Potassium Chloride Carbon Dioxide BUN POC Glucose 144 H 195 H 139 H Random Glucose Calcium AST Lactate Dehydrogenase C-Reactive Protein COVID-19 (MARIAM) 09/12/20 09/12/20 09/13/20 16:00 20:09 11:16 WBC Neut % (Auto) Lymph % (Auto) Lymph # (Auto) PT INR Potassium Chloride Carbon Dioxide BUN POC Glucose 130 H 123 H 138 H Random Glucose Calcium AST Lactate Dehydrogenase C-Reactive Protein COVID-19 (MARIAM) Microbiology: Microbiology 09/10/20 23:53 Blood - Venous Blood Culture - Preliminary No growth after 48 hours. 09/10/20 23:53 Blood - Venous Blood Culture - Preliminary No growth after 48 hours. Assessment and Plan (1) COVID-19: Status: Acute (2) Pneumonia due to 2019-nCoV: Status: Acute (3) Leukopenia: Qualifiers: Leukopenia type: unspecified Qualified Code(s): D72.819 - Decreased white blood cell count, unspecified Status: Acute Continue Decadron Continue Remdisivir Add Doxycycline Zinc/vitc/pepcid/Melatonin oxygen to keep pox>90% Procedures Date of Service Date of Service: 09/13/20
--- NOTE | 2020-09-13 12:59 | HO.PM.IMPN ---
Subjective Subjective Date of Service: 09/13/20 Interval History: covid pneumonia Review of Systems still has fever and tachycardia Sats are borderline room air near 90% Denies any chest pain or shortness cough or phlegm. has abd pain Physical Exam Vital Signs: Vital Signs: Last Vital Signs Temp 97.2 F 09/13/20 12:00 Pulse 98 09/13/20 12:00 Resp 20 09/13/20 12:00 BP 107/67 09/13/20 12:00 Pulse Ox 91 L 09/13/20 12:00 Body Mass Index 29.0 Physical exam: Cvs: rrr, [id number] , no murmur res: clear to auscultation ,no rhonchii or wheezing abd: no rebound or guarding ,nt, bs present. ext pulses present , no cyanosis neuro: axo3 , nonfocal. Objective Data Current Medications Generic Name Dose Route Start Last Admin Trade Name Freq PRN Reason Stop Dose Admin Acetaminophen 650 mg 09/10/20 23:10 09/13/20 08:46 Acetaminophen 325 Mg Tablet PO 650 mg Q6H PRN Administration Pain, Mild (Pain Scale 1-3) Albuterol Sulfate 4 puff 09/10/20 23:08 Albuterol Sulfate 90 Mcg 8 Gm Inhaler INHALE Q2H PRN Shortness of Breath/Wheezing Ascorbic Acid 500 mg 09/13/20 09:00 09/13/20 10:02 Ascorbic Acid 500 Mg Tablet PO 500 mg BID MARCELINO Administration Dexamethasone 6 mg 09/11/20 09:00 09/13/20 08:46 Dexamethasone 6 Mg Tablet PO 6 mg DAILY MARCELINO Administration Doxycycline Hyclate 100 mg 09/13/20 09:00 09/13/20 10:02 Doxycycline Hyclate 100 Mg Tablet PO 100 mg Q12H MARCELINO Administration Enoxaparin Sodium 40 mg 09/11/20 00:00 09/13/20 00:26 Enoxaparin Sodium 40 Mg/0.4 Ml Syringe SUBCUT 40 mg Q24H MARCELINO Administration Famotidine 40 mg 09/13/20 09:00 09/13/20 10:02 Famotidine 20 Mg Tablet PO 40 mg DAILY MARCELINO Administration Guaifenesin 10 ml 09/12/20 10:36 09/13/20 10:01 Guaifenesin 100 Mg/5 Ml Liquid PO 10 ml Q6H PRN Administration Cough Remdesivir 100 mg/ Sodium 230 mls @ 115 mls/hr 09/14/20 10:00 Chloride IV 09/17/20 11:59 Q24H MARCELINO Senna 17.2 mg 09/10/20 23:10 Sennosides 8.6 Mg Tablet PO BEDTIME PRN Constipation Sodium Chloride 3 ml 09/11/20 00:00 09/13/20 08:46 0.9 % Sodium Chloride Flush 3 Ml Syringe IVFLUSH 3 ml QSHIFT MARCELINO Administration Zinc Sulfate 220 mg 09/13/20 09:00 09/13/20 10:02 Zinc Sulfate 220 Mg Capsule PO 220 mg DAILY MARCELINO Administration Labs CBC & Chem 7: 09/11/20 05:56 09/11/20 05:56 Microbiology Microbiology Results: Microbiology 09/10/20 23:53 Blood - Venous Blood Culture - Preliminary No growth after 48 hours. 09/10/20 23:53 Blood - Venous Blood Culture - Preliminary No growth after 48 hours. Assessment and Plan (1) COVID-19: Status: Acute Assessment and Plan: 1. viralsepsis /covid pneumonia started on remdesvir continue decadrone pulm eval-added doxy 2.hyperglycemia : Hba1c levels 5.5 , moniter fs
[2020-09-13] MEDS: Famotidine 20 MG TABLET PO (15:15)
[2020-09-13] MEDS: ondansetron HCL 4 MG/2 ML VIAL IVPUSH (15:15)
[2020-09-13] MEDS: Lidocaine 4 % Patch ADH..PATCH 1 PATCH TRANSDERMA (15:16)
[2020-09-13] MEDS: Remdesivir 200 MG in 0.9 % Sodium Chloride 210 ML 105 MG IV (15:16)
[2020-09-13] MEDS: HYDROmorphone HCl 0.5 MG/0.5 ML SYRINGE 0.25 MG IVPUSH (15:17)
[2020-09-13 15:42] LABS: Alanine Aminotransferase 26 U/L (0-31); Albumin Level 3.6 g/dL (3.5-5.0); Alkaline Phosphatase 67 U/L (39-117); Anion Gap 15 (12-20); Aspartate Amino Transferase 40 U/L (5-31); Bilirubin Direct 0.4 mg/dL (0.0-0.5); Bilirubin Total 0.8 mg/dL (0.0-1.0); Blood Urea Nitrogen 8 mg/dL (9-16); Calcium 8.1 mg/dL (8.4-10.2); Carbon Dioxide 28 mmol/L (22-29); Chloride 97 mmol/L (96-108); Creatinine Clr Calc Pharmacy 93.2; Estimated Glomerular Filt Rate > 60; Glucose Random 167 mg/dL (60-115); Potassium 3.2 mmol/L (3.3-5.1); Sodium 137 mmol/L (135-145); Total Protein 6.9 g/dL (6.5-8.0)
[2020-09-13 16:48] LABS: Glucose, Whole Blood 166 mg/dL (60-115)
[2020-09-13] MEDS: Potassium Chloride ER 20 MEQ TAB.ER.PRT PO (18:15)
[2020-09-13 19:34] LABS: CDIFF Ag Negative (Negative); CDIFF Internal ctrl Dots and bkg OK (V); CDiff Toxin Negative (Negative)
[2020-09-13 19:51] LABS: Leukocytes Stool Qualitative NEGATIVE (NEGATIVE)
[2020-09-13 20:00] LABS: Glucose, Whole Blood 173 mg/dL (60-115)
[2020-09-14] VITALS (8 sets, daily range): BP systolic 103–113; BP diastolic 62–72; PULSE 80–113; RESP 18–20; TEMP 36.1–37.1; O2SAT 86–95
[2020-09-14] MEDS: Enoxaparin Sodium 40 MG/0.4 ML SYRINGE SUBCUT ×2 (00:57→23:31)
[2020-09-14] MEDS: Simethicone 80 MG TAB.CHEW PO ×2 (05:03→16:07)
[2020-09-14 07:05] LABS: Hematocrit 37.1 % (37-47); Mean Corpuscular HGB Conc 32.3 g/dl (31.0-35.0); Mean Corpuscular Hemoglobin 28.2 pg (27.0-33.0); Mean Corpuscular Volume 87.1 fL (80-98); Mean Platelet Volume 10.6 fL (9.4-12.3); Platelet Count 289 X10*3/uL (160-400); Red Blood Count 4.26 X10*6/uL (4.20-5.50); White Blood Count 8.6 X10*3/uL (4.8-10.8)
[2020-09-14 07:16] LABS: Glucose, Whole Blood 84 mg/dL (60-115)
[2020-09-14 07:25] LABS: Alanine Aminotransferase 21 U/L (0-31); Albumin Level 3.3 g/dL (3.5-5.0); Alkaline Phosphatase 58 U/L (39-117); Anion Gap 16 (12-20); Aspartate Amino Transferase 21 U/L (5-31); Bilirubin Direct 0.3 mg/dL (0.0-0.5); Bilirubin Total 0.6 mg/dL (0.0-1.0); Blood Urea Nitrogen 9 mg/dL (9-16); Calcium 7.5 mg/dL (8.4-10.2); Carbon Dioxide 27 mmol/L (22-29); Chloride 100 mmol/L (96-108); Creatinine Clr Calc Pharmacy 106.6; Estimated Glomerular Filt Rate > 60; Glucose Random 94 mg/dL (60-115); Potassium 3.1 mmol/L (3.3-5.1); Sodium 140 mmol/L (135-145); Total Protein 6.3 g/dL (6.5-8.0)
[2020-09-14] MEDS: 0.9 % Sodium Chloride Flush 3 ML SYRINGE IVFLUSH ×2 (10:17→16:10)
[2020-09-14] MEDS: Zinc Sulfate 220 MG CAPSULE PO (10:18)
[2020-09-14] MEDS: Famotidine 20 MG TABLET 40 MG PO (10:18)
[2020-09-14] MEDS: Lidocaine 4 % Patch ADH..PATCH 1 PATCH TRANSDERMA (10:18)
[2020-09-14] MEDS: Ascorbic Acid 500 MG TABLET PO ×2 (10:18→19:37)
[2020-09-14] MEDS: dexAMETHasone 6 MG TABLET PO (10:19)
[2020-09-14] MEDS: guaiFENesin 100 MG/5 ML LIQUID 10 ML PO ×2 (10:22→16:22)
[2020-09-14] MEDS: Acetaminophen 325 MG TABLET 650 MG PO ×3 (10:30→23:52)
[2020-09-14 11:22] LABS: Glucose, Whole Blood 87 mg/dL (60-115)
[2020-09-14] MEDS: Loperamide HCl 2 MG CAPSULE PO (12:45)
--- NOTE | 2020-09-14 14:00 | P.PNIM_ITS ---
Subjective Subjective Date of Service: 09/14/20 Interval History: complaining of shortness of breath, loose stool and gas ROS General + headache , no fever chills. CVS no chest pain, no palpitation. Respiratory cough ,sob Gastrointestinal no nausea, no vomiting, no abdominal pain Physical Exam Vital Signs: Vital Signs: Last Vital Signs Temp 97.1 F 09/14/20 11:13 Pulse 113 H 09/14/20 11:13 Resp 18 09/14/20 11:13 BP 113/63 09/14/20 11:13 Pulse Ox 90 L 09/14/20 11:13 Body Mass Index 29.0 GEN Sick appearing, no distress Neck no JVD Lungs coarse breath sound, diminished, no wheeze, or rhonchi, no respiratory distress Heart tachy regular Abdomen soft nontender bowel sounds audible Extremities no edema Neuro nonfocal, speech clear Objective Data Current Medications Generic Name Dose Route Start Last Admin Trade Name Freq PRN Reason Stop Dose Admin Acetaminophen 650 mg 09/10/20 23:10 09/14/20 10:30 Acetaminophen 325 Mg Tablet PO 650 mg Q6H PRN Administration Pain, Mild (Pain Scale 1-3) Albuterol Sulfate 4 puff 09/10/20 23:08 Albuterol Sulfate 90 Mcg 8 Gm Inhaler INHALE Q2H PRN Shortness of Breath/Wheezing Ascorbic Acid 500 mg 09/13/20 09:00 09/14/20 10:18 Ascorbic Acid 500 Mg Tablet PO 500 mg BID MARCELINO Administration Dexamethasone 6 mg 09/11/20 09:00 09/14/20 10:19 Dexamethasone 6 Mg Tablet PO 6 mg DAILY MARCELINO Administration Doxycycline Hyclate 100 mg 09/13/20 09:00 09/14/20 10:19 Doxycycline Hyclate 100 Mg Tablet PO 100 mg Q12H MARCELINO Administration Enoxaparin Sodium 40 mg 09/11/20 00:00 09/14/20 00:57 Enoxaparin Sodium 40 Mg/0.4 Ml Syringe SUBCUT 40 mg Q24H MARCELINO Administration Famotidine 20 mg 09/15/20 09:00 Famotidine 20 Mg Tablet PO DAILY MARCELINO Guaifenesin 10 ml 09/12/20 10:36 09/14/20 10:22 Guaifenesin 100 Mg/5 Ml Liquid PO 10 ml Q6H PRN Administration Cough Remdesivir 100 mg/ Sodium 230 mls @ 115 mls/hr 09/14/20 15:00 Chloride IV 09/17/20 16:59 Q24H MARCELINO Lidocaine 1 patch 09/13/20 14:30 09/14/20 10:18 Lidocaine 4 % Patch Adh..Patch TRANSDERMA 1 patch DAILY MARCELINO Administration Protocol Senna 17.2 mg 09/10/20 23:10 Sennosides 8.6 Mg Tablet PO BEDTIME PRN Constipation Simethicone 80 mg 09/14/20 11:10 Simethicone 80 Mg Tab.Chew PO QIDWMHS PRN Dyspepsia Sodium Chloride 3 ml 09/11/20 00:00 09/14/20 10:17 0.9 % Sodium Chloride Flush 3 Ml Syringe IVFLUSH 3 ml QSHIFT MARCELINO Administration Zinc Sulfate 220 mg 09/13/20 09:00 09/14/20 10:18 Zinc Sulfate 220 Mg Capsule PO 220 mg DAILY MARCELINO Administration Labs CBC & Chem 7: 09/14/20 06:15 09/14/20 06:15 Microbiology Microbiology Results: Microbiology 09/13/20 18:45 Stool Stool Culture - Preliminary Normal so far. 09/10/20 23:53 Blood - Venous Blood Culture - Preliminary No growth after 48 hours. 09/10/20 23:53 Blood - Venous Blood Culture - Preliminary No growth after 48 hours. Assessment and Plan (1) Acute respiratory failure with hypoxia: Status: Acute (2) Pneumonia due to 2019-nCoV: Status: Acute (3) Leukopenia: Status: Acute Assessment and Plan: 44-year-old female presented with cough, fatigue, generalized body aches for 4 days with subjective fevers and chills. In ER, the patient was noted to be h ypoxic on presentation subsequently placed on supplemental oxygen. Chest x-ray showed multifocal infiltrates. CT chest showed extensive bilateral airspace disease consistent with severe Covid. d-dimer 384 Pneumonia due to COVID-19 Persistent sob and weakness continue Decadron day 4/7 and iv Remdisivir last day 09/17. continue supportive care with vit C ,zinc and cough medication Acute respiratory failure with hypoxia due to above , not on home med,gradually wean o2, recommend out of bed to chair ,add IS Diarrhea likley due to covid infection c.diff neg,imodium given ,added simethicone for gas dvt proph lovenox
[2020-09-14] MEDS: Remdesivir 100 MG in 0.9 % Sodium Chloride 230 ML 115 MG IV (15:58)
[2020-09-14 16:08] LABS: Glucose, Whole Blood 144 mg/dL (60-115)
[2020-09-14 20:15] LABS: Glucose, Whole Blood 138 mg/dL (60-115)
[2020-09-14 23:27] LABS: C Reactive Protein 13.39 mg/dL (< or = 0.50)
[2020-09-15] VITALS (8 sets, daily range): BP systolic 93–117; BP diastolic 58–72; PULSE 85–101; RESP 16–24; TEMP 36.2–37.1; O2SAT 88–98
[2020-09-15] MEDS: Simethicone 80 MG TAB.CHEW PO ×3 (01:00→15:43)
[2020-09-15] MEDS: 0.9 % Sodium Chloride Flush 3 ML SYRINGE IVFLUSH ×4 (01:03→20:11)
[2020-09-15 07:15] LABS: Glucose, Whole Blood 91 mg/dL (60-115)
[2020-09-15] MEDS: Ascorbic Acid 500 MG TABLET PO ×2 (09:06→20:11)
[2020-09-15] MEDS: dexAMETHasone 6 MG TABLET PO (09:06)
[2020-09-15] MEDS: Famotidine 20 MG TABLET PO (09:06)
[2020-09-15] MEDS: Zinc Sulfate 220 MG CAPSULE PO (09:06)
[2020-09-15] MEDS: Lidocaine 4 % Patch ADH..PATCH 1 PATCH TRANSDERMA (09:07)
[2020-09-15 11:14] LABS: Glucose, Whole Blood 118 mg/dL (60-115)
--- NOTE | 2020-09-15 12:21 | HO.PM.IMPN ---
Subjective Subjective Date of Service: 09/15/20 Interval History: Seen in f/u for covid with resp failure, she feels better, oxyen level is also better and she says he feels better ROS General + headache , no fever chills. CVS no chest pain, no palpitation. Respiratory cough ,sob Gastrointestinal no nausea, no vomiting, no abdominal pain Physical Exam Vital Signs: Vital Signs: Last Vital Signs Temp 97.1 F 09/15/20 11:33 Pulse 101 H 09/15/20 11:33 Resp 18 09/15/20 11:33 BP 111/72 09/15/20 11:33 Pulse Ox 97 09/15/20 11:33 Body Mass Index 29.0 Constitutional Awake and Alert, No apparent distress Neck Supple, No lymphadenopathy Cardiovascular RRR, No M/R/G, S1 S2, No S3 S4, No pedal brittany Respiratory normal resp effort, speaks in full sentences Gastrointestinal Non tender, Non-distended Skin No rash Neurological Alert & oriented x3 Psychological Appropriate affect Objective Data Current Medications Generic Name Dose Route Start Last Admin Trade Name Tayq PRN Reason Stop Dose Admin Acetaminophen 650 mg 09/10/20 23:10 09/14/20 23:52 Acetaminophen 325 Mg Tablet PO 650 mg Q6H PRN Administration Pain, Mild (Pain Scale 1-3) Albuterol Sulfate 4 puff 09/10/20 23:08 Albuterol Sulfate 90 Mcg 8 Gm Inhaler INHALE Q2H PRN Shortness of Breath/Wheezing Ascorbic Acid 500 mg 09/13/20 09:00 09/15/20 09:06 Ascorbic Acid 500 Mg Tablet PO 500 mg BID MARCELINO Administration Dexamethasone 6 mg 09/11/20 09:00 09/15/20 09:06 Dexamethasone 6 Mg Tablet PO 6 mg DAILY MARCELINO Administration Doxycycline Hyclate 100 mg 09/13/20 09:00 09/15/20 09:06 Doxycycline Hyclate 100 Mg Tablet PO 100 mg Q12H MARCELINO Administration Enoxaparin Sodium 40 mg 09/11/20 00:00 09/14/20 23:31 Enoxaparin Sodium 40 Mg/0.4 Ml Syringe SUBCUT 40 mg Q24H MARCELINO Administration Famotidine 20 mg 09/15/20 09:00 09/15/20 09:06 Famotidine 20 Mg Tablet PO 20 mg DAILY MARCELINO Administration Guaifenesin 10 ml 09/12/20 10:36 09/14/20 16:22 Guaifenesin 100 Mg/5 Ml Liquid PO 10 ml Q6H PRN Administration Cough Remdesivir 100 mg/ Sodium 230 mls @ 115 mls/hr 09/14/20 15:00 09/14/20 17:58 Chloride IV 09/17/20 16:59 Infused Q24H MARCELINO Infusion Lidocaine 1 patch 09/13/20 14:30 09/15/20 09:07 Lidocaine 4 % Patch Adh..Patch TRANSDERMA 1 patch DAILY MARCELINO Administration Protocol Ondansetron HCl 4 mg 09/15/20 12:20 Ondansetron Hcl 4 Mg/2 Ml Vial IVPUSH Q8H PRN Nausea and Vomiting Senna 17.2 mg 09/10/20 23:10 Sennosides 8.6 Mg Tablet PO BEDTIME PRN Constipation Simethicone 80 mg 09/14/20 11:10 09/15/20 09:07 Simethicone 80 Mg Tab.Chew PO 80 mg QIDWMHS PRN Administration Dyspepsia Sodium Chloride 3 ml 09/11/20 00:00 09/15/20 09:07 0.9 % Sodium Chloride Flush 3 Ml Syringe IVFLUSH 3 ml QSHIFT MARCELINO Administration Zinc Sulfate 220 mg 09/13/20 09:00 09/15/20 09:06 Zinc Sulfate 220 Mg Capsule PO 220 mg DAILY MARCELINO Administration Labs CBC & Chem 7: 09/14/20 06:15 09/14/20 06:15 Microbiology Microbiology Results: Microbiology 09/13/20 18:45 Stool Stool Culture - Preliminary Normal so far. 09/10/20 23:53 Blood - Venous Blood Culture - Preliminary No growth after 48 hours. 09/10/20 23:53 Blood - Venous Blood Culture - Preliminary No growth after 48 hours. Assessment and Plan (1) Acute respiratory failure with hypoxia: Status: Acute (2) Pneumonia due to 2019-nCoV: Status: Acute (3) Leukopenia: Status: Acute Assessment and Plan: 44-year-old female presented with cough, fatigue, generalized body aches for 4 days with subjective fevers and chills. In ER, the patient was noted to be hypoxic on presentation subsequently placed on supplemental oxygen. Chest x-ray showed multifocal infiltrates. CT chest showed extensive bilateral airspace disease consistent with severe Covid. d-dimer 384 Pneumonia due to COVID-19 Persistent sob and weakness continue Decadron day 5/7 and iv Remdisivir last day 09/17. continue supportive care with vit C ,zinc and cough medication Acute respiratory failure with hypoxia due to above , not on home med, gradually wean o2, recommend out of bed to chair ,add IS Diarrhea likley due to covid infection c.diff neg, imodium given, added simethicone for gas dvt proph lovenox
[2020-09-15] MEDS: ondansetron HCL 4 MG/2 ML VIAL IVPUSH (12:33)
[2020-09-15] MEDS: Remdesivir 100 MG in 0.9 % Sodium Chloride 230 ML 115 MG IV (15:43)
[2020-09-15] MEDS: Acetaminophen 325 MG TABLET 650 MG PO ×2 (15:45→23:58)
[2020-09-15] MEDS: guaiFENesin 100 MG/5 ML LIQUID 10 ML PO (15:52)
[2020-09-15 16:20] LABS: Glucose, Whole Blood 143 mg/dL (60-115)
[2020-09-15 20:27] LABS: Glucose, Whole Blood 115 mg/dL (60-115)
[2020-09-16] MEDS: Enoxaparin Sodium 40 MG/0.4 ML SYRINGE SUBCUT (01:02)
[2020-09-16] MEDS: Simethicone 80 MG TAB.CHEW PO (01:03)
[2020-09-16] MEDS: guaiFENesin 100 MG/5 ML LIQUID 10 ML PO (01:03)
[2020-09-16 03:12] VITALS: BP 114/67; PULSE 95; RESP 17; TEMP 36.6; O2SAT 95
[2020-09-16] MEDS: 0.9 % Sodium Chloride Flush 3 ML SYRINGE IVFLUSH ×2 (07:46→21:00)
[2020-09-16 07:47] LABS: Glucose, Whole Blood 90 mg/dL (60-115)
[2020-09-16 08:00] VITALS: BP 113/65; PULSE 105; RESP 21; TEMP 36.9; O2SAT 92
[2020-09-16] MEDS: Famotidine 20 MG TABLET PO (09:39)
[2020-09-16] MEDS: Lidocaine 4 % Patch ADH..PATCH 1 PATCH TRANSDERMA (09:39)
[2020-09-16] MEDS: Zinc Sulfate 220 MG CAPSULE PO (09:39)
[2020-09-16] MEDS: Ascorbic Acid 500 MG TABLET PO ×2 (09:39→21:00)
[2020-09-16] MEDS: dexAMETHasone 6 MG TABLET PO (09:39)
[2020-09-16 11:27] LABS: Glucose, Whole Blood 102 mg/dL (60-115)
[2020-09-16 11:51] VITALS: BP 111/69; PULSE 100; RESP 23; TEMP 37.2; O2SAT 94
[2020-09-16] MEDS: Acetaminophen 325 MG TABLET 650 MG PO (12:02)
--- NOTE | 2020-09-16 13:08 | HO.PM.IMPN ---
Subjective Subjective Date of Service: 09/16/20 Interval History: Seen in f/u for covid with resp failure, she feels better, making progress ROS General + headache , no fever chills. CVS no chest pain, no palpitation. Respiratory cough ,sob Gastrointestinal no nausea, no vomiting, no abdominal pain Physical Exam Vital Signs: Vital Signs: Last Vital Signs Temp 99 F 09/16/20 11:51 Pulse 100 09/16/20 11:51 Resp 23 H 09/16/20 11:51 BP 111/69 09/16/20 11:51 Pulse Ox 94 09/16/20 11:51 Body Mass Index 29.0 Constitutional Awake and Alert, No apparent distress Neck Supple, No lymphadenopathy Cardiovascular RRR, No M/R/G, S1 S2, No S3 S4, No pedal edema Respiratory Lungs normal expension, speaks in normal Gastrointestinal Non tender, Non-distended Skin No rash Neurological Alert & oriented x3 Psychological Appropriate affect Objective Data Current Medications Generic Name Dose Route Start Last Admin Trade Name Freq PRN Reason Stop Dose Admin Acetaminophen 650 mg 09/10/20 23:10 09/16/20 12:02 Acetaminophen 325 Mg Tablet PO 650 mg Q6H PRN Administration Pain, Mild (Pain Scale 1-3) Albuterol Sulfate 4 puff 09/10/20 23:08 Albuterol Sulfate 90 Mcg 8 Gm Inhaler INHALE Q2H PRN Shortness of Breath/Wheezing Ascorbic Acid 500 mg 09/13/20 09:00 09/16/20 09:39 Ascorbic Acid 500 Mg Tablet PO 500 mg BID MARCELINO Administration Dexamethasone 6 mg 09/11/20 09:00 09/16/20 09:39 Dexamethasone 6 Mg Tablet PO 6 mg DAILY MARCELINO Administration Doxycycline Hyclate 100 mg 09/13/20 09:00 09/16/20 09:39 Doxycycline Hyclate 100 Mg Tablet PO 100 mg Q12H MARCELINO Administration Enoxaparin Sodium 40 mg 09/11/20 00:00 09/16/20 01:02 Enoxaparin Sodium 40 Mg/0.4 Ml Syringe SUBCUT 40 mg Q24H MARCELINO Administration Famotidine 20 mg 09/15/20 09:00 09/16/20 09:39 Famotidine 20 Mg Tablet PO 20 mg DAILY MARCELINO Administration Guaifenesin 10 ml 09/12/20 10:36 09/16/20 01:03 Guaifenesin 100 Mg/5 Ml Liquid PO 10 ml Q6H PRN Administration Cough Remdesivir 100 mg/ Sodium 230 mls @ 115 mls/hr 09/14/20 15:00 09/15/20 17:43 Chloride IV 09/17/20 16:59 Infused Q24H MARCELINO Infusion Lidocaine 1 patch 09/13/20 14:30 09/16/20 09:39 Lidocaine 4 % Patch Adh..Patch TRANSDERMA 1 patch DAILY MARCELINO Administration Protocol Ondansetron HCl 4 mg 09/15/20 12:20 09/15/20 12:33 Ondansetron Hcl 4 Mg/2 Ml Vial IVPUSH 4 mg Q8H PRN Administration Nausea and Vomiting Senna 17.2 mg 09/10/20 23:10 Sennosides 8.6 Mg Tablet PO BEDTIME PRN Constipation Simethicone 80 mg 09/14/20 11:10 09/16/20 01:03 Simethicone 80 Mg Tab.Chew PO 80 mg QIDWMHS PRN Administration Dyspepsia Sodium Chloride 3 ml 09/11/20 00:00 09/16/20 07:46 0.9 % Sodium Chloride Flush 3 Ml Syringe IVFLUSH 3 ml QSHIFT MARCELINO Administration Zinc Sulfate 220 mg 09/13/20 09:00 09/16/20 09:39 Zinc Sulfate 220 Mg Capsule PO 220 mg DAILY MARCELINO Administration Labs CBC & Chem 7: 09/14/20 06:15 09/14/20 06:15 Microbiology Microbiology Results: Microbiology 09/13/20 18:45 Stool Stool Culture - Final 09/10/20 23:53 Blood - Venous Blood Culture - Final No growth after 5 days. 09/10/20 23:53 Blood - Venous Blood Culture - Final No growth after 5 days. Assessment and Plan (1) Acute respiratory failure with hypoxia: Status: Acute (2) Pneumonia due to 2019-nCoV: Status: Acute (3) Leukopenia: Status: Acute Assessment and Plan: 44-year-old female presented with cough, fatigue, generalized body aches for 4 days with subjective fevers and chills. In ER, the patient was noted to be hypoxic on presentation subsequently placed on supplemental oxygen. Chest x-ray showed multifocal infiltrates. CT chest showed extensive bilateral airspace disease consistent with severe Covid. d-dimer 384 Pneumonia due to COVID-19 Persistent sob and weakness continue Decadron day 10/23 and iv Remdisivir last day 09/17. continue supportive care with vit C ,zinc and cough medication Acute respiratory failure with hypoxia Improving, wean off O2 by tomorrow Diarrhea likley due to covid infection c.diff neg, imodium given, added simethicone for gas dvt proph lovenox likely home tomorrow
[2020-09-16] MEDS: guaiFENesin LA 600 MG TAB.ER.12H PO ×2 (13:59→21:00)
[2020-09-16 14:21] LABS: Anion Gap 11 (12-20); Blood Urea Nitrogen 13 mg/dL (9-16); Carbon Dioxide 30 mmol/L (22-29); Chloride 99 mmol/L (96-108); Creatinine Clr Calc Pharmacy 111.9; Estimated Glomerular Filt Rate > 60; Glucose Random 143 mg/dL (60-115); Potassium 3.3 mmol/L (3.3-5.1); Sodium 137 mmol/L (135-145)
[2020-09-16 15:21] VITALS: BP 113/70; PULSE 82; RESP 16; TEMP 36.8; O2SAT 97
[2020-09-16] MEDS: Remdesivir 100 MG in 0.9 % Sodium Chloride 230 ML 115 MG IV (15:24)
--- NOTE | 2020-09-16 15:27 | PC.NURSE ---
pt has been educated with efraín at bedside about how to use the incentive spirometer and to walk often. t has been non compliant. She has been in bed all shift ambulating to bathroom only and has not been using the incentive device. Reeducated pt, she continues with non compliance, Pt also unplugged the negative pressure fan in the room. Will continue to monitor, fan has been turned on by staff, will chec k frequently
[2020-09-16 15:50] LABS: Glucose, Whole Blood 169 mg/dL (60-115)
[2020-09-16 19:10] VITALS: BP 106/74; PULSE 92; RESP 22; TEMP 36.3; O2SAT 97
[2020-09-16 19:52] LABS: Glucose, Whole Blood 131 mg/dL (60-115)
[2020-09-17] VITALS (7 sets, daily range): BP systolic 111–128; BP diastolic 63–82; PULSE 84–95; RESP 18–20; TEMP 36.2–37.4; O2SAT 89–96
[2020-09-17] MEDS: Enoxaparin Sodium 40 MG/0.4 ML SYRINGE SUBCUT (00:13)
[2020-09-17] MEDS: Acetaminophen 325 MG TABLET 650 MG PO (03:27)
[2020-09-17 07:33] LABS: Glucose, Whole Blood 104 mg/dL (60-115)
[2020-09-17] MEDS: Lidocaine 4 % Patch ADH..PATCH 1 PATCH TRANSDERMA (07:43)
[2020-09-17] MEDS: Zinc Sulfate 220 MG CAPSULE PO (07:43)
[2020-09-17] MEDS: Ascorbic Acid 500 MG TABLET PO (07:43)
[2020-09-17] MEDS: dexAMETHasone 6 MG TABLET PO (07:43)
[2020-09-17] MEDS: guaiFENesin LA 600 MG TAB.ER.12H PO (07:43)
[2020-09-17] MEDS: Famotidine 20 MG TABLET PO (07:44)
[2020-09-17] MEDS: 0.9 % Sodium Chloride Flush 3 ML SYRINGE IVFLUSH ×2 (07:44→17:07)
--- NOTE | 2020-09-17 08:37 | MHC.CM.PN ---
at this time dc plan remains the same, for patient to return home no svcs. home will be at her daughter's , where she is staying. cm to cont. to follow.
[2020-09-17 11:31] LABS: Glucose, Whole Blood 116 mg/dL (60-115)
--- NOTE | 2020-09-17 13:41 | HO.PM.IMPN ---
Subjective Subjective Date of Service: 09/17/20 Interval History: Seen in f/u for covid with resp failure, she feels better, no sob ROS General + headache , no fever chills. CVS no chest pain, no palpitation. Respiratory cough ,sob Gastrointestinal no nausea, no vomiting, no abdominal pain Physical Exam Vital Signs: Vital Signs: Last Vital Signs Temp 98.6 F 09/17/20 11:19 Pulse 88 09/17/20 11:19 Resp 20 09/17/20 11:19 BP 119/72 09/17/20 11:19 Pulse Ox 90 L 09/17/20 11:19 Body Mass Index 29.0 General: AO X 3, no acute distress Resp: normal effort, nor CVS: S1,S2,RRR GI: +BS, NT, no distention Skin: No rash Neuro: motor grossly intact Psych: appropriate affect Objective Data Current Medications Generic Name Dose Route Start Last Admin Trade Name Freq PRN Reason Stop Dose Admin Acetaminophen 650 mg 09/10/20 23:10 09/17/20 03:27 Acetaminophen 325 Mg Tablet PO 650 mg Q6H PRN Administration Pain, Mild (Pain Scale 1-3) Albuterol Sulfate 4 puff 09/10/20 23:08 Albuterol Sulfate 90 Mcg 8 Gm Inhaler INHALE Q2H PRN Shortness of Breath/Wheezing Ascorbic Acid 500 mg 09/13/20 09:00 09/17/20 07:43 Ascorbic Acid 500 Mg Tablet PO 500 mg BID MARCELINO Administration Dexamethasone 6 mg 09/11/20 09:00 09/17/20 07:43 Dexamethasone 6 Mg Tablet PO 6 mg DAILY MARCELINO Administration Doxycycline Hyclate 100 mg 09/13/20 09:00 09/17/20 07:43 Doxycycline Hyclate 100 Mg Tablet PO 100 mg Q12H MARCELINO Administration Enoxaparin Sodium 40 mg 09/11/20 00:00 09/17/20 00:13 Enoxaparin Sodium 40 Mg/0.4 Ml Syringe SUBCUT 40 mg Q24H MARCELINO Administration Famotidine 20 mg 09/15/20 09:00 09/17/20 07:44 Famotidine 20 Mg Tablet PO 20 mg DAILY MARCELINO Administration Guaifenesin 10 ml 09/12/20 10:36 09/16/20 01:03 Guaifenesin 100 Mg/5 Ml Liquid PO 10 ml Q6H PRN Administration Cough Guaifenesin 600 mg 09/16/20 13:10 09/17/20 07:43 Guaifenesin La 600 Mg Tab.Er.12h PO 600 mg BID MARCELINO Administration Remdesivir 100 mg/ Sodium 230 mls @ 115 mls/hr 09/14/20 15:00 09/16/20 17:29 Chloride IV 09/17/20 16:59 Infused Q24H MARCELINO Infusion Lidocaine 1 patch 09/13/20 14:30 09/17/20 07:43 Lidocaine 4 % Patch Adh..Patch TRANSDERMA 1 patch DAILY MARCELINO Administration Protocol Ondansetron HCl 4 mg 09/15/20 12:20 09/15/20 12:33 Ondansetron Hcl 4 Mg/2 Ml Vial IVPUSH 4 mg Q8H PRN Administration Nausea and Vomiting Senna 17.2 mg 09/10/20 23:10 Sennosides 8.6 Mg Tablet PO BEDTIME PRN Constipation Simethicone 80 mg 09/14/20 11:10 09/16/20 01:03 Simethicone 80 Mg Tab.Chew PO 80 mg QIDWMHS PRN Administration Dyspepsia Sodium Chloride 3 ml 09/11/20 00:00 09/17/20 07:44 0.9 % Sodium Chloride Flush 3 Ml Syringe IVFLUSH 3 ml QSHIFT MARCELINO Administration Zinc Sulfate 220 mg 09/13/20 09:00 09/17/20 07:43 Zinc Sulfate 220 Mg Capsule PO 220 mg DAILY MARCELINO Administration Labs CBC & Chem 7: 09/14/20 06:15 09/16/20 13:46 Microbiology Microbiology Results: Microbiology 09/13/20 18:45 Stool Stool Culture - Final 09/10/20 23:53 Blood - Venous Blood Culture - Final No growth after 5 days. 09/10/20 23:53 Blood - Venous Blood Culture - Final No growth after 5 days. Assessment and Plan (1) Acute respiratory failure with hypoxia: Status: Acute (2) Pneumonia due to 2019-nCoV: Status: Acute (3) Leukopenia: Status: Acute Assessment and Plan: 44-year-old female presented with cough, fatigue, generalized body aches for 4 days with subjective fevers and chills. In ER, the patient was noted to be hypoxic on presentation subsequently placed on supplemental oxygen. Chest x-ray showed multifocal infiltrates. CT chest showed extensive bilateral airspace disease consistent with severe Covid. d-dimer 384 Pneumonia due to COVID-19 no sob, off O2 stating around 90 has completed Remdesevir, Dexa for 10 days Acute respiratory failure with hypoxia Improving, wean off O2 by tomorrow Diarrhea likley due to covid infection c.diff neg, imodium given, added simethicone for gas--diarrhea resolved dvt proph lovenox home tomorrow or later today
--- NOTE | 2020-09-17 14:39 | P.DS_ITS ---
DS: Providers Provider Date of Service: 09/17/20 Date of admission: 09/10/20 23:10 Primary care physician: None Physician Consults: 09/10/20 23:08 Consult to Infectious Diseases Routine Consulting Provider: Gertrudis Rod Reason for consultation: covid pna 09/13/20 07:56 Consult to Pulmonology Routine Consulting Provider: Jose Francisco Aleman Reason for consultation: covid pneumnia/viral sepsis Has provider been notified: No DS: Diagnosis Discharge Diagnosis (1) Acute respiratory failure with hypoxia: Status: Acute (2) Pneumonia due to 2019-nCoV: Status: Acute (3) Leukopenia: Status: Acute DS: Medications Discharge Medications Home Medications: Home Medications Medication Instructions Recorded Confirmed No Known Home Meds 09/11/20 09/11/20 DS: Summary Hospital Course Hospital Course: 45 year female admitted with acute hypoxic respiratory failure due to covid 19 and has been treated with steroid, remdesevir and supportive care with oxgyen and has now been weaned off oxygen and doing well, Oxgyen saturation staying at or above 90 even with activity and overall feeling better and looks forward to going home. Will treat with Dexamethasone for 10 days. She has been on D oxycyline but there is no indication for antibiotics at this time. Time Spent with Patient Time attestation: Total time spent providing and/or coordinating discharge services: Discharge coordination time: Greater than 30 minutes Quality: Stroke Does the patient have a stroke diagnosis?: No Physical Exam Vital Signs: Vital Signs: Last Vital Signs Temp 98.6 F 09/17/20 11:19 Pulse 88 09/17/20 11:19 Resp 20 09/17/20 11:19 BP 119/72 09/17/20 11:19 Pulse Ox 90 L 09/17/20 11:19 Body Mass Index 29.0 DS: Data Data Completed and Pending Labs on day of discharge: Laboratory Results - last 24 hr 09/16/20 09/16/20 09/17/20 15:43 19:48 07:28 POC Glucose 169 H 131 H 104 09/17/20 11:22 POC Glucose 116 H Discharge Plan Discharge Anticipated Discharge Date/Time: 09/17/20 14:34 Patient Disposition: Home, Self-Care Discharge Diagnosis: Covid pneumonia Referrals: Physician,None [Primary Care Provider] - 1 Week Discharge Medications: New dexamethasone 6 mg Tablet 6 mg PO DAILY Qty: 3 RF: 0 Discharge Orders: Discharge Order (Routine); Ordered 09/17/20 Ordered By: Sang Torres Diet: advance to usual diet Activity on Discharge: As tolerated Stand Alone Forms: Patient Portal Discharge page Care Plan Goals: Full recovery from covid Health Concerns: covid 19 with hypoxia Plan of Treatment: Finish taking Dexamethasone and follow up with your Doctor in a week, follow covid 19 isloation guidelines Assessment: See above
[2020-09-17 15:58] LABS: Glucose, Whole Blood 146 mg/dL (60-115)
[2020-09-17] MEDS: Remdesivir 100 MG in 0.9 % Sodium Chloride 230 ML 115 MG IV (16:11)
== END 2020-09-17 19:02 | disposition home or self-care (01) | DRG 177 ==
LOC: HO.ED 09-11 00:16 → HO.IMC 09-11 00:47
PROVIDERS: Hospitalist; Internal Medicine; Admitting Provider Hospitalist; Emergency Provider Internal Medicine; Visit Provider Internal Medicine
DX: U07.1 COVID-19 (principal); J12.82 Pneumonia due to coronavirus disease 2019; J96.01 Acute respiratory failure with hypoxia; D72.819 Decreased white blood cell count, unspecified
CPT/HCPCS: 36415; 71045; 71275; 80048; 80076; 82947; 83036; 83615; 83735; 84145; 85025; 85027; 85379; 85610; 85730; 86140; 87040; 87045; 87046; 87324; 87449; 87635; 89055; 93005; 99285; J0696; J1170; J1650; J2405; J3490; J8540; Q9967

== ENCOUNTER 2025-03-29 09:58 | Outpatient (REF) | payer OTHER, SELFPAY ==
--- NOTE | ~2025-03-29 | XR_ITS ---
EXAMINATION: XR KNEE, RIGHT CLINICAL INFORMATION: R knee pain and swelling COMPARISON: None available. TECHNIQUE: Four views of the right knee. FINDINGS: No visible acute fracture, dislocation or suspicious bony lesion. Mild medial compartment joint space narrowing. Small-moderate joint effusion. XR/XR knee RT 3V IMPRESSION: Mild medial compartment arthritis. Small-moderate joint effusion. Electronically signed by: Kvng Pelayo MD 03/29/2025 02:05 PM MAY
== END 2025-03-29 09:59 | disposition home or self-care (01) ==
LOC: HO.HHCX 09:58
PROVIDERS: PCP Family Medicine; Visit Provider Family Medicine
DX: M25.561 Pain in right knee (principal); M25.461 Effusion, right knee
CPT/HCPCS: 73562

== ENCOUNTER → 2025-03-29 10:51 | Outpatient (BNV) | payer OTHER, SELFPAY | PROVIDERS: PCP Family Medicine; Visit Provider Radiology Diagnostic Ultrasound | DX: M17.12 Unilateral primary osteoarthritis, left knee (principal); M25.462 Effusion, left knee | CPT/HCPCS: 73562 ==